=== PATIENT | female | born 1935 | race Caucasian/White ===

== ENCOUNTER → 2017-05-08 | Outpatient (CLI) | payer OTHER, MEDICARE ==
[~2017-05-08] MED LIST: AMITRIPTYLINE H75 M1 PO; ASPIR 8181 MG PO; CENTRUM SILVER1 EAC4 PO; COUMADIN 4 MG TA4 M1; HYDROCODONE-AP1 EAC6 PO; LASIX 20 MG TAB20 MG PO; LIPITOR 20 MG T20 M1 PO; LISINOPRIL20 MG PO; NORFLEX100 MG PO; PERCOCET PO; TRAZODONE 150150 M1 PO; ULTRAM 50MG TAB50 MG PO; VALIUM5 MG PO; ZETIA10 MG PO
== END ==
LOC: SPEC 10:59
DX: M48.54XA Collapsed vertebra, not elsewhere classified, thoracic region, initial encounter for fracture (principal); M43.8X4 Other specified deforming dorsopathies, thoracic region; I95.89 Other hypotension; I12.9 Hypertensive chronic kidney disease with stage 1 through stage 4 chronic kidney disease, or unspecified chronic kidney disease; N18.9 Chronic kidney disease, unspecified; E78.00 Pure hypercholesterolemia, unspecified

== ENCOUNTER → 2017-05-13 | Outpatient (CLI) | payer OTHER, MEDICARE ==
[~2017-05-13] VITALS: Ht 157.5 cm; Wt 63.5 kg
[2017-05-13 09:51] VITALS: BP 139/58
[2017-05-13 10:16] LABS: HEMATOCRIT 37.7 % (37.0-47.0); HEMOGLOBIN 12.9 gm/dL (12.0-15.0); MCH 31.5 pg (26.0-34.0); MCHC 34.3 g/dL (28.0-37.0); RBC 4.1 mil/uL (4.20-5.00); RDW 12.7 % (10.5-14.5)
[2017-05-13 10:25] LABS: CALCIUM 8.9 mg/dL (8.5-10.1); CREATININE 0.9 mg/dL (0.6-1.0)
[2017-05-13 10:30] LABS: PROTIME 10.4 Seconds (9.3-11.4)
== END | disposition home or self-care (01) ==
LOC: SPEC 06:32
PROVIDERS: Radiology Diagnostic Radiology
DX: M48.54XA Collapsed vertebra, not elsewhere classified, thoracic region, initial encounter for fracture (principal); I10 Essential (primary) hypertension; E78.5 Hyperlipidemia, unspecified; I26.99 Other pulmonary embolism without acute cor pulmonale; Z90.710 Acquired absence of both cervix and uterus

== ENCOUNTER → 2017-08-02 | Outpatient (CLI) | payer OTHER, MEDICARE | LOC: RAD 12:22 | DX: M75.81 Other shoulder lesions, right shoulder (principal); M25.511 Pain in right shoulder ==

== ENCOUNTER → 2017-12-16 | Outpatient (CLI) | payer OTHER, MEDICARE ==
[~2017-12-16] MED LIST changes: -ASPIR 8181 MG PO; -CENTRUM SILVER1 EAC4 PO; -PERCOCET PO; -VALIUM5 MG PO
== END ==
LOC: ULTRA 09:00
DX: N26.1 Atrophy of kidney (terminal) (principal); R16.0 Hepatomegaly, not elsewhere classified; Z96.651 Presence of right artificial knee joint

== ENCOUNTER → 2017-12-24 | Outpatient (CLI) | payer OTHER, MEDICARE ==
[~2017-12-24] MED LIST changes: +ASPIR 8181 MG PO; +CENTRUM SILVER1 EAC4 PO
== END ==
LOC: CAT 10:50
DX: K43.9 Ventral hernia without obstruction or gangrene (principal); I25.10 Atherosclerotic heart disease of native coronary artery without angina pectoris; M47.815 Spondylosis without myelopathy or radiculopathy, thoracolumbar region; M41.85 Other forms of scoliosis, thoracolumbar region; I10 Essential (primary) hypertension; E78.00 Pure hypercholesterolemia, unspecified; Z90.710 Acquired absence of both cervix and uterus

== ENCOUNTER 2017-12-26 05:33 | Inpatient (IN) | payer OTHER, MEDICARE ==
[~2017-12-26] VITALS: Ht 157.5 cm; Wt 67.1 kg
--- NOTE | ~2017-12-26 | O ---
[facility] [place] [address] OPERATIVE REPORT Name: FRACNINE BRIDGES Room #: 459-P ADM IN M.R.#: [id number] Admission: 12/27/17 Attend Phys: Alfonso Cervantes MD Discharge: Date of : 31 Report #: [id number] THIS REPORT FOR: //name// CC: Nancy Cervantes DATE OF SERVICE: 12/26/2017 PREOPERATIVE DIAGNOSIS: Symptomatic incisional hernia with small bowel inside the hernia on CAT scan. POSTOPERATIVE DIAGNOSIS: Symptomatic incisional hernia with small bowel inside the hernia on CAT scan. PROCEDURES PERFORMED: Laparoscopic repair of incisional hernia with a 6-inch circular Ventralight mesh with ST and Echo. ANESTHESIA: General. SURGEON: Alfonso Cervantes MD COMPLICATIONS: None. ESTIMATED BLOOD LOSS: 10 mL. DESCRIPTION OF OPERATION: With the patient under general anesthesia, abdomen was prepped and draped in sterile fashion. Ioban was placed over the abdominal wall. Timeout was performed. The patient did receive 2 grams of Ancef IV before surgery. Trejo catheter was placed. The hernia is midabdominal, slightly veering off to the left and located above the umbilicus. A cutdown incision was made to the right of the abdomen close to the edge of the rectus muscle where it goes into the oblique muscles. This area was anesthetized with 0.25% Marcaine. A 2 cm incision was made here. The fascia was then identified. The fascia was opened. A 0 Vicryl suture placed on the fascia for retraction. The muscle was spread. The posterior fascia was then identified. The posterior fascia was grasped with hemostat. Posterior fascia was then opened with a 15 blade. A 0 Vicryl suture was placed on the fascia edges for retraction. A #11 mm Laureano balloon trocar was placed. Prior to the procedure, I did reduce the herniated content. The CT had shown fairly large amount of small bowel inside the hernia sac. Fortunately, that was able to be reduced out of the hernia sac. The neck of the hernia was visualized. The sac itself was quite a bit larger than the defect, which is typical. The fascia below this area also showed several weak spots. The fascia defect was about 4-5 cm. A 5 mm trocar was placed in the right lower quadrant. Underneath the 11 mm balloon trocar, there was some adhesion present. A second 5 mm trocar was placed in the left lower quadrant. The adhesions were taken down so I could visualize better. This was [address] [address] OPERATIVE REPORT Name: CYRUSFRANCINE BIRCH Room #: 459-P ADM IN M.R.#: [id number] Admission: 12/27/17 Attend Phys: Alfonso Cervantes MD Discharge: Date of : 31 Report #: [id number] just fatty adhesion to the wall. Appendix was visualized. There was no other adhesion to the wall at this point. A mesh that measured 6 inch [place] was folded, placed through the balloon trocar site at the cutdown site without difficulty. The mesh was opened. The balloon trocar was replaced. CO2 was replaced. The small tube that attached to the Echo balloon was pulled out through a small stab incision at the middle of the hernia defect. The Echo was then inflated. The mesh was then able to be pulled up against the wall. The left side of the mesh was tacked with SorbaFix placed about 1.5 cm apart. Care was taken to avoid the inferior epigastric vessel. I did tack as much as I could on the right side, but it was kind of limited with the trocars I had. Stay sutures of CV-2 [place] was placed at 12, 3, 6 o'clock position. The transfascial suture was placed without difficulty. A small 2 mm incision was made. The needle retriever device was placed through the skin opening and then through the wall grabbing the suture and then this was placed through the same skin hole and then through the fascia, through the wall and then through the mesh, grabbing the other end and tying it down. This was repeated at the 12, 3, 6 o'clock position. The right-sided trocar was then removed including the balloon trocar. A stay suture was then placed laterally at 9 o'clock. Also, SorbaFix was used to tack the lateral part of the mesh. At this point, the mesh fixation was completed. CO2 was evacuated, the rest of trocars removed. The cutdown site, the posterior rectus fascia was closed with [id number] 0 PDS x 2. Anterior rectus sheath was then closed with 0 PDS wuosre-re-abris x 2. Skin was irrigated. Skin was closed with 5-0 PDS. The incisions were sealed with Dermabond. Band-Aid was used for dressing when the Dermabond was dry. The patient was taken to recovery room in good condition. A Trejo that was placed will be left overnight. <ELECTRONICALLY SIGNED> By: Alfonso Cervantes MD 12/27/17 1636 1614 [id number] Alfonso Cervantes MD /nt
--- NOTE | ~2017-12-26 | EKG ---
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: ARNOLDO : 1935 Requested By: Alfonso Cervantes Order Number: [id number] MD: Deacon Villalobos Measurements Intervals [place] Rate: 90 P: 35 MA: 203 QRS: -25 QRSD: 100 T: 14 QT: 379 QTc: 464 Interpretive Statements Sinus rhythm Ventricular premature complex Abnormal R-wave progression, late transition Voltage criteria for Left ventricular hypertrophy Compared to ECG 03/17/2015 08:16:34 Ventricular premature complex(es) now present Electronically Signed On 12-27-2017 8:12:52 CDT by Deacon Villalobos [email or web address] <ELECTRONICALLY SIGNED> By: Deacon Villalobos MD, [facility] 12/27/17 0812 1136 1136 Deacon Villalobos MD, [facility] /EPI
--- NOTE | ~2017-12-26 | H ---
[facility] [place] [address] HISTORY AND PHYSICAL Name: FRANCINE BRIDGES Room #: 150-8 [facility] M.R.#: [id number] Admission: 12/26/17 Attend Phys: Alfonso Cervantes MD Discharge: Date of : 31 Report #: [id number] THIS REPORT FOR: //name// CC: Nancy MANUEL MD PREOPERATIVE DIAGNOSIS: Incisional hernia with incarcerated component. HISTORY OF PRESENT ILLNESS: The patient is an 82-year-old who has been complaining of abdominal pain. She started out with some pain in the left lateral abdomen. This started around Thanksgiving when she felt a pulling on the left side. She had a workup for this including MRI, ultrasound. She was seen by Dr. Manuel and noted to have a fairly significant size hernia above the umbilicus. She does not have any problem eating. Bowels are working. She does have pain at the site of her hernia. Along with this pain around the hernia, she also has pain on the left side. The pain does seem to be related to activities such as walking. If she has prolonged sitting, it is also uncomfortable. The patient said that she did not have any incisions on her abdomen, but she did have a colon resection in 2014 because of diverticular disease and narrowing of her colon. When I examined her, there is a lower midline incision. The hernia is at the upper part of the incision. Because of her pain on the left side, I went ahead and did a CAT scan. The patient has had previous procedure of her back at T10-T11. This may be the source of her back pain on the left and flank pain. Her hernia does contain significant amount of small bowel that does not appear to be obstructed. On exam, part of the hernia was reduced. The superior part could not get reduced. Because of symptomatic nature of the incisional hernia, she is here for repair. PAST MEDICAL HISTORY: The patient has a history of high blood pressure and elevated cholesterol. PAST SURGICAL HISTORY: Hysterectomy, colon resection for diverticulitis in 2015 at . FAMILY HISTORY: Father at a young age of 45. Mother at age 90. There is high blood pressure in the family. SOCIAL HISTORY: The patient is retired. She does not smoke. She drinks about 5 times a week. REVIEW OF SYSTEMS: No shortness of breath, chest pain or palpitation. PHYSICAL EXAMINATION: GENERAL: The patient is an elderly female, in no acute distress. HEENT: Pupils react to light. Extraocular muscles are intact. NECK: Soft and supple, no masses, no JVD. [address] [address] HISTORY AND PHYSICAL Name: FRANCINE BRIDGES Room #: 150-8 [facility] M.R.#: [id number] Admission: 12/26/17 Attend Phys: Alfonso Cervantes MD Discharge: Date of : 31 Report #: [id number] LUNGS: Clear to auscultation. HEART: Regular rate and rhythm. No murmur or gallop. ABDOMEN: The patient does have a fairly large hernia located above the umbilicus. It is about 3-4 inches in size. It does contain bowel by palpation. The lower part of the hernia could reduce. The upper part could not get it to go back in. There is no redness or warmth. It is tender to palpation in this area. No abdominal mass, ascites, guarding or rigidity. Again, she does have a lower midline incision that does come up to the level of the umbilicus. EXTREMITIES: No cyanosis, clubbing or edema. IMPRESSION: The patient is a 72-year-old who is complaining of abdominal pain, both at the side of the epigastrium where her incisional hernia is located and also on the left side laterally. She has had some back problems and this could be radicular from the back. I am not sure if the left-sided pain is from the incisional hernia. The incisional hernia is symptomatic. She is recommended to have this repaired. The patient is brought in for laparoscopic repair of this incisional hernia. Risk of bowel injury during the lysis of adhesion was discussed. The patient understands this and she wishes to proceed. Risk of bleeding, infection, hernia recurrence, mesh infection was discussed also. <ELECTRONICALLY SIGNED> By: Alfonso Cervantes MD 12/26/17 1602 37 08 Alfonso Cervantes MD /nt
[2017-12-26 12:38] VITALS: BP 124/65
[2017-12-26 17:00] VITALS: BP 152/68
[2017-12-26 19:44] VITALS: BP 148/75
[2017-12-27 04:09] VITALS: BP 131/65
[2017-12-27 07:15] VITALS: BP 121/61
[2017-12-27 15:26] VITALS: BP 122/70
[2017-12-27 19:04] VITALS: BP 132/62
[2017-12-27 23:41] VITALS: BP 136/66
[2017-12-28 07:41] VITALS: BP 148/79
[2017-12-28 16:23] VITALS: BP 128/63
[2017-12-28 19:35] VITALS: BP 130/45
[2017-12-29 03:35] VITALS: BP 129/51
[2017-12-29 11:33] VITALS: BP 121/70
[2017-12-29] MEDS ORDERED: PERCOCET PO (12:46)
[2017-12-29] MEDS ORDERED: VALIUM5 MG PO (12:47)
[2017-12-29 12:56] VITALS: BP 121/70
== END 2017-12-29 13:54 | disposition home or self-care (01) | DRG 355 ==
LOC: OR 05:33 → 4W 05:33 → TBA 05:33 → OR 10:48 → 4W 17:11 → OR 12-27 08:30 → 4W 12-29 13:54
PROC: 0WUF4JZ Supplement Abdominal Wall with Synthetic Substitute, Percutaneous Endoscopic Approach (ICD-10-PCS; principal; 2017-12-27)
DX: K43.2 Incisional hernia without obstruction or gangrene (principal); I10 Essential (primary) hypertension; E78.00 Pure hypercholesterolemia, unspecified; Z90.710 Acquired absence of both cervix and uterus; Z87.19 Personal history of other diseases of the digestive system; Z82.49 Family history of ischemic heart disease and other diseases of the circulatory system; Z79.899 Other long term (current) drug therapy
CPT/HCPCS: 10047; 50010; 50101; 50249; 50386; 50455; 50555; 50687; 50848; 50978; 53065; 53307; 54022; 54118; 56525; 56526; 56530; 57092; 62110; 62900; 70005

== ENCOUNTER → 2018-07-14 | Outpatient (CLI) | payer OTHER, MEDICARE ==
[~2018-07-14] MED LIST changes: +PERCOCET PO; +VALIUM5 MG PO
== END ==
LOC: RAD 10:49
DX: M17.12 Unilateral primary osteoarthritis, left knee (principal); M25.551 Pain in right hip; M25.762 Osteophyte, left knee

== ENCOUNTER 2019-02-27 16:37 | Emergency (ER) | payer OTHER, MEDICARE ==
[~2019-02-27] VITALS: Ht 157.5 cm; Wt 54.4 kg
[2019-02-27] MEDS ORDERED: MOBIC7.5 MG PO ×2 (18:48→18:51)
[2019-02-27 19:18] VITALS: BP 132/82
== END 2019-02-27 19:18 | disposition home or self-care (01) ==
LOC: ER 16:37
DX: S80.02XA Contusion of left knee, initial encounter (principal); S90.02XA Contusion of left ankle, initial encounter; I10 Essential (primary) hypertension; E78.5 Hyperlipidemia, unspecified; Z86.711 Personal history of pulmonary embolism; Z90.710 Acquired absence of both cervix and uterus; Z96.651 Presence of right artificial knee joint; V89.2XXA Person injured in unspecified motor-vehicle accident, traffic, initial encounter; Y93.89 Activity, other specified; Y92.488 Other paved roadways as the place of occurrence of the external cause; Y99.8 Other external cause status